=== PATIENT | female | born 1995 | race American Indian/Alaskan Native ===

== ENCOUNTER 2018-08-17 04:55 | Emergency (ER) | payer SELFPAY ==
[2018-08-17] MEDS ORDERED: NACL 0.9% 1000 ML 1,000 ML IV ONE (05:54)
[2018-08-17] MEDS ORDERED: ASPIRIN PO ONE (05:54)
[2018-08-17 06:10] LABS: Basophils % (Auto) 0.3 % (0.0-1.8); Eosinophils % (Auto) 0.6 % (0.0-4.3); Hematocrit 39.7 % (30.3-42.9); Hemoglobin 13.1 gm/dl (10.1-14.3); Lymphocytes # (Auto) 2.1 K/mm3 (1.2-5.4); Lymphocytes % (Auto) 41.6 % (13.4-35.0); Mean Corpuscular HGB Conc 33 % (30-34); Mean Corpuscular Hemoglobin 29 pg (28-32); Mean Corpuscular Volume 89 fl (79-97); Monocytes # (Auto) 0.3 K/mm3 (0.0-0.8); Monocytes % (Auto) 5.4 % (0.0-7.3); Platelet Count 254 K/mm3 (140-440); Red Blood Count 4.48 M/mm3 (3.65-5.03); Red Cell Distribution Width 12.8 % (13.2-15.2)
[2018-08-17] MEDS ORDERED: PEPCID IV ONE (08:04)
[2018-08-17] MEDS ORDERED: ZOFRAN ORAL LIQ PO ONE (08:04)
[2018-08-17] MEDS ORDERED: CARAFATE PO ONE (08:04)
[2018-08-17] MEDS ORDERED: TORADOL IV ONE (08:04)
--- NOTE | 2018-08-17 08:05 | Emergency Department Report ---
ED General Adult HPI - General Chief complaint: Chest Pain Stated complaint: CHEST PAIN/ABD PAIN Time Seen by Provider: 08/17/18 07:29 Source: patient, RN notes reviewed Mode of arrival: Ambulatory Limitations: No Limitations - History of Present Illness Initial comments: This is a 22-year-old female who was not known to this provider. The patient denies chronic medical conditions, reports that she is not , and reports that she has not given or delivery within the past 6 weeks. She does not have a local primary care doctor, and she denies a history of abdominal surgeries. The patient presents to the ER with a complaint of nonsmoker left-sided chest wall pain for 2 weeks. The pain is intermittent, and does not radiate to the back, arms or neck. There is vomiting associated with epigastric and left upper quadrant and right upper quadrant pain. This pain in the abdomen has been going on for 1 week. It is intermittent. It does not radiate anywhere, with the exception of involving the left anterior chest wall. The patient denies DVT, pulmonary embolus risk factors. She denies cocaine use , aspirin use, and lower abdominal pain. She denies irritative, obstructive urinary symptoms. Patient reports doing heavy lifting at work occasionally. -: Gradual Location: chest, abdomen Radiation: other Severity scale (0 -10): 5 Quality: aching Consistency: intermittent Improves with: rest Worsens with: movement Associated Symptoms: chest pain, nausea/vomiting. denies: confusion, cough, diaphoresis, fever/chills, headaches, loss of appetite, malaise, rash, seizure, shortness of breath, syncope, weakness - Related Data Previous Rx's Medication Instructions Recorded Last Taken Type Acetaminophen [Tylenol Arthritis] 650 mg PO Q6HR PRN #30 tablet.er 08/17/18 Unknown Rx Famotidine [Pepcid] 20 mg PO BID #30 tablet 08/17/18 Unknown Rx Ondansetron [Zofran Odt] 4 mg PO Q8HR PRN #20 tab.rapdis 08/17/18 Unknown Rx Allergies Allergy/AdvReac Type Severity Reaction Status Date / Time No Known Allergies Allergy Unverified 08/17/18 05:54 ED Review of Systems ROS: Stated complaint: CHEST PAIN/ABD PAIN Other details as noted in HPI Comment: All other systems reviewed and negative ED Past Medical Hx - Past Medical History Previous Medical History?: Yes Additional medical history: scoliosis - Surgical History Past Surgical History?: No - Social History Smoking Status: Never Smoker Substance Use Type: None - Medications Home Medications: Home Medications Medication Instructions Recorded Confirmed Last Taken Type Acetaminophen [Tylenol Arthritis] 650 mg PO Q6HR PRN #30 tablet.er 08/17/18 Unknown Rx Famotidine [Pepcid] 20 mg PO BID #30 tablet 08/17/18 Unknown Rx Ondansetron [Zofran Odt] 4 mg PO Q8HR PRN #20 tab.rapdis 08/17/18 Unknown Rx ED Physical Exam - General Limitations: No Limitations General appearance: alert, in no apparent distress - Head Head exam: Present: atraumatic, normocephalic - Eye Eye exam: Present: normal appearance, EOMI - ENT ENT exam: Present: normal exam, normal orophraynx, mucous membranes moist, normal external ear exam - Neck Neck exam: Present: normal inspection, full ROM. Absent: tenderness, meningismus - Respiratory Respiratory exam: Present: normal lung sounds bilaterally, chest wall tenderness , other (breast exam shows nontender breast, with no redness, pus or streaking and soft compartments. There is no obvious large adenopathy. During examination, chaperoned by bee breeder WESLEY BRUMFIELD). Absent: respiratory distress, wheezes, rales, rhonchi, stridor - Cardiovascular Cardiovascular Exam: Present: regular rate, normal rhythm, normal heart sounds. Absent: bradycardia, tachycardia, irregular rhythm, systolic murmur, diastolic murmur, rubs, gallop - GI/Abdominal GI/Abdominal exam: Present: soft, normal bowel sounds. Absent: distended, tenderness, rebound, rigid, pulsatile mass - Extremities Exam Extremities exam: Present: normal inspection, full ROM, normal capillary refill , other (2+ pulses noted in the bilateral upper, lower extremities. Compartments soft. No long bony tenderness. The pelvis is stable.). Absent: tenderness, pedal edema, joint swelling, calf tenderness - Back Exam Back exam: Present: normal inspection, full ROM. Absent: tenderness, CVA tenderness (R), paraspinal tenderness, vertebral tenderness - Neurological Exam Neurological exam: Present: alert, oriented X3, CN II-XII intact, normal gait, other (Extraocular movements intact. Tongue midline. No facial droop. Facial sensation intact to light touch in the V1, V2, V3 distribution bilaterally. 5 and 5 strength in 4 extremities.. Sensation is intact to light touch in 4 extremities.). Absent: motor sensory deficit - Psychiatric Psychiatric exam: Present: normal affect, normal mood - Skin Skin exam: Present: warm, dry, intact, normal color. Absent: rash ED Course Vital Signs 08/17/18 08/17/18 08/17/18 05:46 07:01 07:12 Temperature 99 F 98 F Pulse Rate 76 67 Respiratory 14 17 Rate Blood Pressure 122/79 Blood Pressure 129/76 [Left] O2 Sat by Pulse 98 100 100 Oximetry 08/17/18 08/17/18 08/17/18 07:16 07:30 07:46 Temperature Pulse Rate 74 77 88 Respiratory 14 14 17 Rate Blood Pressure 129/76 129/76 129/76 Blood Pressure [Left] O2 Sat by Pulse 100 100 100 Oximetry 08/17/18 08/17/18 08:00 08:49 Temperature Pulse Rate 91 H Respiratory 11 L 18 Rate Blood Pressure 129/76 Blood Pressure [Left] O2 Sat by Pulse 100 Oximetry ED Medical Decision Making - Lab Data Result diagrams: 08/17/18 05:59 08/17/18 05:59 Vital Signs 08/17/18 08/17/18 08/17/18 05:46 07:01 07:12 Temperature 99 F 98 F Pulse Rate 76 67 Respiratory 14 17 Rate Blood Pressure 122/79 Blood Pressure 129/76 [Left] O2 Sat by Pulse 98 100 100 Oximetry 08/17/18 08/17/18 08/17/18 07:16 07:30 07:46 Temperature Pulse Rate 74 77 88 Respiratory 14 14 17 Rate Blood Pressure 129/76 129/76 129/76 Blood Pressure [Left] O2 Sat by Pulse 100 100 100 Oximetry 08/17/18 08/17/18 08:00 08:49 Temperature Pulse Rate 91 H Respiratory 11 L 18 Rate Blood Pressure 129/76 Blood Pressure [Left] O2 Sat by Pulse 100 Oximetry Lab Results 08/17/18 08/17/18 08/17/18 Range/Units 05:59 05:59 05:59 WBC 5.0 (4.5-11.0) K/mm3 RBC 4.48 (3.65-5.03) M/mm3 Hgb 13.1 (10.1-14.3) gm/dl Hct 39.7 (30.3-42.9) % MCV 89 (79-97) fl MCH 29 (28-32) pg MCHC 33 (30-34) % RDW 12.8 L (13.2-15.2) % Plt Count 254 (140-440) K/mm3 Lymph % (Auto) 41.6 H (13.4-35.0) % Bell % (Auto) 5.4 (0.0-7.3) % Eos % (Auto) 0.6 (0.0-4.3) % Baso % (Auto) 0.3 (0.0-1.8) % Lymph # 2.1 (1.2-5.4) K/mm3 Bell # 0.3 (0.0-0.8) K/mm3 Eos # 0.0 (0.0-0.4) K/mm3 Baso # 0.0 (0.0-0.1) K/mm3 Seg Neutrophils % 52.1 (40.0-70.0) % Seg Neutrophils # 2.6 (1.8-7.7) K/mm3 Sodium 140 (137-145) mmol/L Potassium 4.2 (3.6-5.0) mmol/L Chloride 102.5 (98-107) mmol/L Carbon Dioxide 25 (22-30) mmol/L Anion Gap 17 mmol/L BUN 11 (7-17) mg/dL Creatinine 0.5 L (0.7-1.2) mg/dL Estimated GFR > 60 ml/min BUN/Creatinine Ratio 22 % Glucose 83 (65-100) mg/dL Calcium 9.3 (8.4-10.2) mg/dL Total Bilirubin 0.30 (0.1-1.2) mg/dL AST 16 (5-40) units/L ALT 7 (7-56) units/L Alkaline Phosphatase 64 (35-129) units/L Troponin T < 0.010 (0.00-0.029) ng/mL Total Protein 7.6 (6.3-8.2) g/dL Albumin 4.4 (3.9-5) g/dL Albumin/Globulin Ratio 1.4 % Lipase (13-60) units/L HCG, Qual Negative (Negative) 08/17/18 Range/Units 05:59 WBC (4.5-11.0) K/mm3 RBC (3.65-5.03) M/mm3 Hgb (10.1-14.3) gm/dl Hct (30.3-42.9) % MCV (79-97) fl MCH (28-32) pg MCHC (30-34) % RDW (13.2-15.2) % Plt Count (140-440) K/mm3 Lymph % (Auto) (13.4-35.0) % Bell % (Auto) (0.0-7.3) % Eos % (Auto) (0.0-4.3) % Baso % (Auto) (0.0-1.8) % Lymph # (1.2-5.4) K/mm3 Bell # (0.0-0.8) K/mm3 Eos # (0.0-0.4) K/mm3 Baso # (0.0-0.1) K/mm3 Seg Neutrophils % (40.0-70.0) % Seg Neutrophils # (1.8-7.7) K/mm3 Sodium (137-145) mmol/L Potassium (3.6-5.0) mmol/L Chloride (98-107) mmol/L Carbon Dioxide (22-30) mmol/L Anion Gap mmol/L BUN (7-17) mg/dL Creatinine (0.7-1.2) mg/dL Estimated GFR ml/min BUN/Creatinine Ratio % Glucose (65-100) mg/dL Calcium (8.4-10.2) mg/dL Total Bilirubin (0.1-1.2) mg/dL AST (5-40) units/L ALT (7-56) units/L Alkaline Phosphatase (35-129) units/L Troponin T (0.00-0.029) ng/mL Total Protein (6.3-8.2) g/dL Albumin (3.9-5) g/dL Albumin/Globulin Ratio % Lipase 11 L (13-60) units/L HCG, Qual (Negative) - EKG Data -: EKG Interpreted by Me - EKG Data 08/17/18 10:03 EKG shows normal sinus, 69 beats per minute, high left ventricular voltage, biphasic T-wave in V2, or line atrial enlargement, abnormal EKG, this EKG is not a STEMI - Radiology Data Radiology results: report reviewed, image reviewed X-ray of the chest is negative for acute disease - Medical Decision Making Differential diagnosis, including but not limited to: GERD, gastritis, pneumonia , costochondritis, hiatal hernia, myocarditis, pericarditis Assessment and plan: 22-year-old female who is low risk by well's criteria, who is perc negative, 2 weeks of chest wall pain, incidental abnormal EKG, no fever , and no tachycardia, negative troponin. The patient is afebrile with reassuring vital signs, and patient has been observed in the emergency room for approximately 4-1/2 hours without clinical decompensation. On multiple reexaminations, the patient is noted to be talking and playing on a cellular phone and in no distress. She felt improved after supportive and symptomatically therapy and was able to tolerate liquid feeds. Her EKG shows incidental abnormal findings, most likely age-related. Troponin negative 1 and symptoms present for greater than 8 hours. Given young age and lack of vascular risk factors, I find the patient to be very low risk for major adverse cardiac event through the heart score. Furthermore, as per the [employer] clinical policy , myocardial infarction may be excluded with 1 set of cardiac enzymes if symptoms have been present for greater than 8 hours. Myocarditis, pericarditis very unlikely given lack of tachycardia, lack of fever , and negative troponin. Patient objective testing, the patient's does not appear to have an emergency medical condition at this time, she is medically suitable to follow up with an outpatient primary care doctor or community arts worker. Critical care attestation.: If time is entered above; I have spent that time in minutes in the direct care of this critically ill patient, excluding procedure time. ED Disposition Clinical Impression: Chest wall pain Disposition: DC-01 TO HOME OR SELFCARE Is pt being admited?: No Does the pt Need Aspirin: No Condition: Stable Instructions: Chest Pain (ED), Costochondritis (ED) Additional Instructions: Rest, and avoid heavy lifting. Avoid strenuous physical activity. Take the medications as needed/directed. Follow up with a community arts worker or primary care doctor within the next 5-7 days. Return to the ER right away with new pain, worsening pain, migration of pain, projectile vomiting, change in mental status , confusion, inability to tolerate liquid feeds. Referrals: [facility] [Provider Group] - 3-5 Days [facility] [Provider Group] - 3-5 Days
--- NOTE | 2018-08-17 08:26 | XRay Report ---
ROUTINE CHEST, TWO VIEWS: HISTORY: Chest pain, nausea and vomiting. The trachea, heart, mediastinal contour, lung ybarra and bony thorax are unremarkable. IMPRESSION: Unremarkable chest x-ray.
[2018-08-17 08:30] LABS: Alanine Aminotransferase 7 units/L (7-56); Albumin 4.4 g/dL (3.9-5); BUN/Creatinine Ratio 22; Blood Urea Nitrogen 11 mg/dL (7-17); Calcium 9.3 mg/dL (8.4-10.2); Hemolysis Index 58
[2018-08-17 11:03] VITALS: BP 110/70
== END 2018-08-17 10:40 | disposition home or self-care (01) ==
LOC: ED 04:55
DX: R07.89 Other chest pain (principal); R11.2 Nausea with vomiting, unspecified; R10.13 Epigastric pain
CPT/HCPCS: 36415; 71046; 80053; 83690; 84484; 84703; 85025; 93005; 93010; 96374; 96375; 99284; J1885; Q0162